=== PATIENT | male | born 1990 | race Caucasian/White ===

== ENCOUNTER 2017-02-05 08:13 | Emergency (ER) | payer SELFPAY ==
[~2017-02-05] VITALS: Ht 190.5 cm; Wt 85.0 kg
[2017-02-05 08:16] VITALS: BP 137/82; PULSE 66; RESP 16; TEMP 98.2; O2SAT 100
--- NOTE | 2017-02-05 09:22 | PD ---
HPI . over 1 year dental pain Chief Complaint: Oral / Dental Pain or Problem Time Seen by Provider: 09:21 Travel History International Travel<30 days: No Contact w/Intl Traveler<30days: No Traveled to known affect area: No History of Present Illness HPI 26-year-old male who recently moved from [place] here with complaints of dental pain for over one year. Patient says he has multiple teeth in his mouth that are giving him problems and pain. He is here requesting treatment. He does have a dentist appointment on February 18, but is here requesting something for pain. He denies any fever or chills. I explained to patient that he can use OTC pain meds and will need to see dentist for treatment. PFSH Past Medical History Medical History: Denies Significant Hx Social History Tobacco Use: No Allergies-Medications (Allergen,Severity, Reaction): Coded Allergies: No Known Allergies (Unverified , 02/05/17) Reported Meds & Prescriptions Reported Meds & Active Scripts Active No Active Prescriptions or Reported Medications Review of Systems General / Constitutional: No: Fever Eyes: No: Visual changes HENT: Positive: Dental Difficulties, No: Headaches Cardiovascular: No: Chest Pain or Discomfort Respiratory: No: Shortness of Breath Gastrointestinal: No: Abdominal Pain Genitourinary: No: Dysuria Musculoskeletal: No: Pain Skin: No Rash Neurologic: No: Weakness Psychiatric: No: Depression Endocrine: No: Polydipsia Hematologic/Lymphatic: No: Easy Bruising Physical Exam Narrative GENERAL: AAO x 3, no acute distress, Well-nourished, well-developed patient. SKIN: Warm and dry. No visible rashes or bruising. HEAD: Normocephalic and atraumatic. EYES: No scleral icterus. No injection or drainage. ENT: No nasal drainage noted. Mucous membranes pink. Airway patent. Multiple teeth with caries. #17, 18 and 19 with cracks and carries. #1 also with caries and cracked NECK: Supple, trachea midline. No JVD. No lymphadenopathy CARDIOVASCULAR: Regular rate and rhythm without murmurs, gallops, or rubs. RESPIRATORY: Breath sounds equal bilaterally. No accessory muscle use. No rhonchi or rales. GASTROINTESTINAL: Abdomen soft, non-tender, nondistended. EXTREMITIES: No cyanosis or edema. BACK: Nontender without obvious deformity. No CVA tenderness. PSYCH: AAO x 3, normal affect. Data Data Last Documented VS Vital Signs Date Time Temp Pulse Resp B/P Pulse Ox O2 Delivery O2 Flow Rate FiO2 02/05/17 08:16 98.2 66 16 137/82 100 MDM Medical Decision Making Medical Screen Exam Complete: Yes Emergency Medical Condition: No Medical Record Reviewed: Yes Differential Diagnosis broken tooth, dental caries, less likely oral abscess Narrative Course 26-year-old male who recently moved from [place] here with complaints of dental pain for over one year. Patient says he has multiple teeth in his mouth that are giving him problems and pain. He is here requesting treatment. He does have a dentist appointment on February 18, but is here requesting something for pain. He denies any fever or chills. I explained to patient that he can use OTC pain meds and will need to see dentist for treatment. A medical screening exam was performed: At the time of evaluation the presenting medical condition was determined not to be of an emergent nature. The patient was given the option of receiving additional care, but declined. Patient was given options for additional community resources from which to obtain care. The Patient Has Been advised to seek medical attention for their presenting complaint. The patient has been advised to return to the ER at any time if an emergent condition develops. Diagnosis Primary Impression: Encounter for medical screening examination Scripts No Active Prescriptions or Reported Meds Condition: Leesa Herndon Feb 05, 2017 09:22
== END 2017-02-05 09:26 | disposition left against medical advice (07) ==
LOC: NETRI 08:13
DX: K08.89 Other specified disorders of teeth and supporting structures (principal); K03.81 Cracked tooth; K02.9 Dental caries, unspecified
CPT/HCPCS: 99281